=== PATIENT | female | born 1960 | race Caucasian/White ===

== ENCOUNTER 2017-07-01 10:23 | Emergency (ER) | payer OTHER ==
[~2017-07-01] VITALS: Ht 172.7 cm; Wt 86.4 kg
[2017-07-01 10:45] VITALS: BP 122/76
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
--- NOTE | 2017-07-01 10:58 | NUR ---
PT AMBULATES TO BED 12
--- NOTE | 2017-07-01 11:57 | NUR ---
Patient being evaluated by DR. MONK at bedside.
[2017-07-01] MEDS ORDERED: diphenhydrAMINE 50 MG/ML VIAL IM ONE (12:10)
[2017-07-01] MEDS ORDERED: ALBUTEROL SULFATE/IPRATROPIU 3 ML SOL IH ONE (12:10)
[2017-07-01] MEDS ORDERED: FAMOTIDINE 20 MG TAB PO ONE (12:10)
[2017-07-01] MEDS ORDERED: DEXAMETHASONE 10 MG/ML VIAL IM ONE (12:10)
--- NOTE | 2017-07-01 12:18 | NUR ---
RT AT BEDSIDE FOR BREATHING TREATMENT.
[2017-07-01 12:57] VITALS: BP 133/79
--- NOTE | 2017-07-01 12:57 | NUR ---
Patient discharged with BP 133/79 DENIES WALTON OR DIZINESS AT THIS TIME. Written and verbal after care instructions given and explained. Patient alert, oriented and verbalized understanding of instructions. Ambulatory with CANE. All questions addressed prior to discharge. ID band removed. Patient advised to follow up with PMD. Rx of FAMOTIDINE, PREDNISONE & HYDROXYZINE HCL given. Patient educated on indication of medication including possible reaction and side effects. Opportunity to ask questions provided and answered.
== END 2017-07-01 12:57 | disposition home or self-care (01) ==
LOC: MED 10:23
DX: L25.9 Unspecified contact dermatitis, unspecified cause (principal)
CPT/HCPCS: 94640; 96372; 99284; J1100; J1200; J7620